=== PATIENT | male | born 1950 | race Caucasian/White ===

== ENCOUNTER 2025-06-10 09:12 | Emergency (ER) | payer MEDICARE, OTHER ==
[~2025-06-10] VITALS: Ht 177.8 cm; Wt 97.9 kg
[2025-06-10 09:57] LABS: BASO # 0.0 10^3/uL (0.0-0.2); BASO % 0.3 % (0.0-1.0); EOS # 0.1 10^3/uL (0.0-0.5); EOS % 1.1 % (0.0-3.0); LYMPH # 1.7 10^3/uL (1.5-5.0); LYMPH % 17.5 % (24.0-44.0); MONO # 1.0 10^3/uL (0.0-0.8); MONO % 10.3 % (2.0-8.0); NEUTROPHILS # 6.8 10^3/uL (1.5-8.5); NEUTROPHILS % 70.1 % (36.0-66.0); PLATELET COUNT, AUTOMATED 195 10^3/uL (150-450)
[2025-06-10 10:18] LABS: CK-MB VALUE MASS 1.9 NG/ML (<3.6)
[2025-06-10 10:21] LABS: CALCIUM LEVEL 8.8 MG/DL (8.3-10.6); CARBON DIOXIDE LEVEL 22.0 MMOL/L (20-31); CHLORIDE LEVEL 105.0 MMOL/L (98-107); CREATININE FOR GFR 1.03 MG/DL (0.70-1.30); GLOMERULAR FILTRATION RATE 76.2 (>42); POTASSIUM SERUM 4.2 MMOL/L (3.5-5.1); SODIUM LEVEL 141.0 MMOL/L (136-145)
[2025-06-10 10:22] LABS: CPK CREATINE PHOSPHOKINASE 74.0 U/L (46-171); MB/CK RELATIVE INDEX 2.56 (< OR =4)
[2025-06-10 10:39] LABS: ALT/SGPT 34.0 U/L (7.0-40); AST/SGOT 22.0 U/L (<34)
[2025-06-10 11:25] LABS: CK-MB VALUE MASS 1.1 NG/ML (<3.6)
[2025-06-10 11:31] LABS: CPK CREATINE PHOSPHOKINASE 58.0 U/L (46-171); MB/CK RELATIVE INDEX 1.89 (< OR =4)
[2025-06-10] MEDS ORDERED: ISOVUE-370 76% 100 ML VIAL As Ordered ONE (12:08)
[2025-06-10] MEDS ORDERED: NITR0.4S14 SL (14:00)
[2025-06-10 14:15] VITALS: BP 141/60; TEMP 97.4; O2SAT 95
== END 2025-06-10 14:24 | disposition left against medical advice (07) ==
LOC: M ED 09:12
DX: R07.9 Chest pain, unspecified (principal); Z53.9 Procedure and treatment not carried out, unspecified reason; I48.91 Unspecified atrial fibrillation; I10 Essential (primary) hypertension; E78.5 Hyperlipidemia, unspecified; Z85.46 Personal history of malignant neoplasm of prostate
CPT/HCPCS: 71045; 71275; 80048; 80076; 82550; 82553; 83690; 84484; 85025; 93005; 93041; 94760; 99285; Q9967